=== PATIENT | female | born 1995 | race Caucasian/White ===

== ENCOUNTER 2025-08-19 22:39 | Emergency (ER) | payer OTHER ==
[~2025-08-19] VITALS: Ht 149.9 cm; Wt 46.3 kg
[2025-08-19] MEDS ORDERED: IBUPROFEN 400 MG TABLET ONE (23:58)
[2025-08-19] MEDS: IBUPROFEN 400 MG TABLET PO ONE (23:58)
[2025-08-20] MEDS ORDERED: AMOX-430 PO (01:08)
[2025-08-20 01:22] VITALS: BP 132/84; TEMP 98.4; O2SAT 99
== END 2025-08-20 01:23 | disposition home or self-care (01) ==
LOC: ER 23:11
DX: S92.425A Nondisplaced fracture of distal phalanx of left great toe, initial encounter for closed fracture (principal); W20.8XXA Other cause of strike by thrown, projected or falling object, initial encounter; Y93.89 Activity, other specified; Y92.89 Other specified places as the place of occurrence of the external cause; Y99.8 Other external cause status
CPT/HCPCS: 73660-TC